=== PATIENT | female | born 1935 | race Caucasian/White ===

== ENCOUNTER → 2018-05-29 | Outpatient (CLI) | payer OTHER ==
--- NOTE | 2018-05-29 12:06 | 2DMMODE ---
[place] [address] 2 D/M-MODE ECHOCARDIOGRAM Name: CHACHA RBOERTSON Room: [facility]#: [id number] Admission: 05/29/18 Attend Phys: Cristopher Falcon, Discharge: Date of : 35 Date of Service: 05/29/18 1206 Report #: [id number] THIS REPORT FOR: //name// APPROVED REPORT Study performed: 05/29/2018 09:58:30 EXAM: Limited 2D Echocardiogram Patient Location: Out-Patient Status: routine BSA: 1.65 HR: 77 bpm BP: 122/80 mmHg Other Information Study Quality: Good Indications Congestive Heart Failure 2D Dimensions LVEF(%): 81.49 (>50%) IVSd: 10.05 (7-11mm) LVDd: 39.70 mm PWd: 9.15 (7-11mm) LVDs: 20.00 (25-40mm) Aortic Root: 29.13 mm Yepez's LVEF: 81.49 % Left Ventricle The left ventricle is normal size. There is normal LV segmental wall motion. There is normal left ventricular wall thickness. The left ventricular systolic function is normal. The left ventricular ejection fraction is within the normal range. LVEF is 60-65%. Right Ventricle The right ventricle is normal size. The right ventricular systolic function is normal. Atria The left atrium size is normal. The right atrium size is normal. Aortic Valve The aortic valve is normal in structure. [address] [address] 2 D/M-MODE ECHOCARDIOGRAM Name: CHACHA ROBERTSON Room: [facility] EleanorDoyle#: [id number] Admission: 05/29/18 Attend Phys: Cristopher Falcon, Discharge: Date of : 35 Date of Service: 05/29/18 1206 Report #: [id number] Mitral Valve The mitral valve is normal in structure. Tricuspid Valve The tricuspid valve is normal in structure. Pulmonic Valve Pulmonic valve is not well visualized. Great Vessels The aortic root is normal in size. IVC is normal in size and collapses >50% with inspiration. Pericardium There is no pericardial effusion. <Conclusion> The left ventricular systolic function is normal. The left ventricular ejection fraction is within the normal range. <ELECTRONICALLY SIGNED> By: Darrell Oropeza MD, [facility] 05/29/18 1206 05 05 Darrell Oropeza MD, FACC /INF
== END ==
LOC: M.CRD 09:37
DX: I50.41 Acute combined systolic (congestive) and diastolic (congestive) heart failure (principal); I48.0 Paroxysmal atrial fibrillation